=== PATIENT | male | born 1995 | race Caucasian/White ===

== ENCOUNTER 2017-09-10 07:00 | Emergency (ER) | payer OTHER ==
[2017-09-10] MEDS ORDERED: BENZONATATE 100 MG CAP PO ONE ×2 (07:48→08:04)
--- NOTE | 2017-09-10 07:55 | EDPHYS ---
Physician Documentation [facility] Name: Reilly Rodriguez Age: 22 yrs Sex: Male : 1995 Arrival Date: 09/10/2017 Time: 07:02 Bed 19 Private MD: ED Physician Jaleel Weiner HPI: 09/10 07:13 This 22 yrs old Male presents to ER via Ambulatory with complaints of Cough, rh1 Fever, Congestion. 07:13 The patient or guardian reports cough, that is intermittent, described as moderate, rh1 with productive sputum, that is yellow, "mucous", flu symptoms, low-grade fever, myalgias. Onset: The symptoms/episode began/occurred yesterday. Severity of symptoms: At their worst the symptoms were moderate, in the emergency department the symptoms are unchanged. Modifying factors: The symptoms are alleviated by nothing, the symptoms are aggravated by nothing. Associated signs and symptoms: Pertinent positives: fever, rhinorrhea, sore throat, Pertinent negatives: chest pain, diarrhea, ear ache, nausea, vomiting. The patient has not experienced similar symptoms in the past. The patient has not recently seen a physician. PT. reports runny nose, congestion, intermittent coughing and body aches since yesterday am.. Historical: - Allergies: 07:10 NKA; iw - Home Meds: 07:10 None [Active]; iw - PMHx: 07:10 None; iw - PSHx: 07:10 None; iw - Immunization history:: Adult Immunizations up to date. - Social history:: Smoking status: Patient/guardian denies using tobacco. ROS: 07:13 Cardiovascular: Negative for chest pain, palpitations, and edema. rh1 07:13 Constitutional: Positive for body aches, chills, fever, malaise, Negative for poor PO intake. 07:13 ENT: Positive for rhinorrhea, sinus congestion, sore throat, Negative for ear pain, difficulty swallowing, difficulty handling secretions, hoarseness. 07:13 Respiratory: Positive for cough, with yellow sputum, Negative for dyspnea on exertion, hemoptysis, shortness of breath, wheezing. 07:13 Abdomen/GI: Negative for vomiting, diarrhea. 07:13 : Negative for small amounts. 07:13 Skin: Negative for rash. 07:13 Neuro: Positive for headache, reports "migraine" MOTLEY, ongoing throughout the night last night, gradual onset, similar to previous, Negative for altered mental status, dizziness. 07:13 All other systems are negative. Exam: 07:13 Constitutional: This is a well developed, well nourished patient who is awake, alert, rh1 and in no acute distress. Head/Face: Normocephalic, atraumatic. 07:13 Chest/axilla: Normal chest wall appearance and motion. Nontender with no deformity. No lesions are appreciated. Cardiovascular: Regular rate and rhythm with a normal S1 and S2. No gallops, murmurs, or rubs. No JVD. No pulse deficits. Respiratory: Lungs have equal breath sounds bilaterally, clear to auscultation. No rales, rhonchi or wheezes noted. No increased work of breathing. Abdomen/GI: Soft, non-tender, with normal bowel sounds. No distension. No guarding or rebound. No evidence of tenderness throughout. Back: No spinal tenderness. No costovertebral tenderness. Full range of motion. Skin: Warm, dry with normal turgor. Normal color with no rashes, no lesions, and no evidence of cellulitis. 07:13 Eyes: Pupils: no acute changes, normal size, normal reaction to light, equal, right pupil is approximately 3 mm(s), left pupil is approximately 3 mm(s), Extraocular movements: intact throughout, Nystagmus: is not appreciated. 07:13 ENT: External ear(s): are unremarkable, no pain with movement, Ear canal(s): are normal, clear, no cerumen impaction, no erythema, no foreign body, no purulent discharge, no swelling, TM's: are normal, no evidence of bulging, no dullness, no erythema, no fluid levels, no hemotympanum, no rupture, normal bony landmarks, Nose: Nasal mucosa: edematous, erythematous, moist, Turbinates: are normal, Mouth: is normal, no lip abnormalities, no mucosal abnormalities, Posterior pharynx: is normal, airway is patent, no erythema, no exudate, no peritonsilar mass, no pooling of secretions, no swelling, normal tonsil apperance, normal sized tonsils, normal uvula appearance, normal uvula size. 07:13 Neck: ROM/movement: is normal, is supple, without pain, no range of motions limitations, no meningismus, no nuchal rigidity, Lymph nodes: lymphadenopathy is appreciated, anterior cervical nodes, submandibular nodes. 07:13 Neuro: Orientation: is normal, to person, place \\T\\ time. Mentation: is normal, lucid, able to follow commands, Motor: is normal, moves all fours, Gait: is steady, at a normal pace, without difficulty. Vital Signs: 07:11 BP 134 / 79; Pulse 67; Resp 18; Temp 98.1(O); Pulse Ox 100% on R/A; Weight 90.72 kg; iw Height 5 ft. 11 in. (180.34 cm); Pain 9/10; 07:11 Body Mass Index 27.89 (90.72 kg, 180.34 cm) iw MDM: 07:13 Patient medically screened. [place] 07:54 Data reviewed: vital signs, nurses notes, lab test result(s), and as a result, I will rh1 discharge patient. Data interpreted: Pulse oximetry: on room air is 100 %. Interpretation: normal. Counseling: I had a detailed discussion with the patient and/or guardian regarding: the historical points, exam findings, and any diagnostic results supporting the discharge/admit diagnosis, lab results, the need for outpatient follow up, a family practitioner, to return to the emergency department if symptoms worsen or persist or if there are any questions or concerns that arise at home. 09/10 07:20 Order name: Flu 1 09/10 07:20 Order name: Strep 1 09/10 07:51 Order name: Group A Streptococcus Rapid Sc; Complete Time: 07:54 EDMS 09/10 07:52 Order name: Influenza Screen (A ; Complete Time: 07:54 EDMS Administered Medications: 07:51 Drug: Tessalon Perle 100 mg Route: PO; iw Disposition: 09/10/17 07:54 Discharged to Home. Impression: Acute upper respiratory infection, unspecified, Acute pharyngitis. - Condition is Stable. - Discharge Instructions: Pharyngitis, Salt Water Gargle, Upper Respiratory Infection, Adult, Cough, Adult. - Prescriptions for Tessalon Perles 100 mg Oral Capsule - take 1 capsule by ORAL route every 8 hours As needed; 15 capsule. - Work release form, Medication Reconciliation Form, Thank You Letter, Antibiotic Education, Prescription Opioid Use form. - Follow up: Private Physician; When: 1 - 2 days; Reason: Recheck today's complaints, Continuance of care, Re-evaluation by your physician. Follow up: Emergency Department; When: As needed; Reason: Fever > 102 F, If symptoms return, Trouble breathing, Worsening of condition. - Problem is new. - Symptoms have improved. Addendum: 09/11/2017 14:45 Co-signature as Attending Physician, Jaleel Weiner MD I agree with the assessment and c motley plan of care. Signatures: Dispatcher [employer] EDJaleel Kraft MD MD cha Williams, Irene, WILLIAMS RN Lacy Diaz NP ENGINE ROOM OPERATOR rh1 Corrections: (The following items were deleted from the chart) 09/10 07:55 07:13 The patient or guardian reports cough, that is intermittent, described as rh1 moderate, with productive sputum, that is yellow, flu symptoms, low-grade fever, myalgias, rh1 07:55 07:13 Respiratory: Positive for cough, with yellow sputum, Negative for dyspnea on rh1 exertion, hemoptysis, shortness of breath, wheezing, rh1
--- NOTE | 2017-09-10 07:55 | ER ---
Nurse's Notes [facility] Name: Reilly Rodriguez Age: 22 yrs Sex: Male : 1995 Arrival Date: 09/10/2017 Time: 07:02 Bed 19 Private MD: Diagnosis: Acute upper respiratory infection, unspecified;Acute pharyngitis Presentation: 09/10 07:11 Presenting complaint: Patient states: has had fever, cough, congestion, sore throat for iw a couple of days, also has headache. Transition of care: patient was not received from another setting of care. Onset of symptoms was September 08, 2017. Care prior to arrival: None. 07:11 Method Of Arrival: Ambulatory iw 07:11 Acuity: KWAME 4 iw Historical: - Allergies: 07:10 NKA; iw - Home Meds: 07:10 None [Active]; iw - PMHx: 07:10 None; iw - PSHx: 07:10 None; iw - Immunization history:: Adult Immunizations up to date. - Social history:: Smoking status: Patient/guardian denies using tobacco. Screenin:16 Abuse screen: Denies threats or abuse. Denies injuries from another. Nutritional iw screening: No deficits noted. Tuberculosis screening: No symptoms or risk factors identified. Fall Risk None identified. Assessment: 07:15 General: Appears in no apparent distress. Behavior is calm, cooperative. General: iw Reports fever for feeling ill for. Pain: Complains of pain in head, throat Pain currently is 9 out of 10 on a pain scale. Neuro: Level of Consciousness is awake, alert, obeys commands, Oriented to person, place, time, situation, Moves all extremities. Full function. Neuro: Cardiovascular: Capillary refill < 3 seconds in bilateral fingers Patient's skin is warm and dry. Respiratory: Airway is patent Breath sounds are clear bilaterally. GI: Abdomen is flat, non-distended. Derm: Skin is pink, warm \T\ dry. normal. Musculoskeletal: Range of motion: intact in all extremities. Vital Signs: 07:11 BP 134 / 79; Pulse 67; Resp 18; Temp 98.1(O); Pulse Ox 100% on R/A; Weight 90.72 kg; iw Height 5 ft. 11 in. (180.34 cm); Pain 9/10; 07:11 Body Mass Index 27.89 (90.72 kg, 180.34 cm) iw ED Course: 07:02 Patient arrived in ED. ds1 07:11 Triage completed. iw 07:11 Arm band placed on. iw 07:13 [facility]ur[facility] rh1 07:13 Jaleel Weiner MD is Attending Physician. rh1 07:15 Judith Melgar, RN is Primary Nurse. iw 07:16 Patient has correct armband on for positive identification. iw 07:16 No provider procedures requiring assistance completed. Patient did not have IV access iw during this emergency room visit. Administered Medications: 07:51 Drug: Tessalon Perle 100 mg Route: PO; iw Outcome: 07:54 Discharge ordered by MD. rh1 08:40 Discharged to home ambulatory. iw 08:40 Condition: good 08:40 Discharge instructions given to patient, Instructed on discharge instructions, follow up and referral plans. medication usage, Demonstrated understanding of instructions, follow-up care, medications, Prescriptions given X 1. 08:42 Patient left the ED. iw Signatures: Gloria Teran ds1 Judith Melgar, RN RN iw Lacy Krishnamurthy, BOXER OPERATOR BOXER OPERATOR rh1
== END 2017-09-10 08:42 | disposition home or self-care (01) ==
LOC: ER 07:00
DX: J06.9 Acute upper respiratory infection, unspecified; J02.9 Acute pharyngitis, unspecified
CPT/HCPCS: 87070; 87081; 87804; 99283